=== PATIENT | female | born 1975 | race Caucasian/White ===

== ENCOUNTER 2016-07-14 08:16 | Day surgery (SDC) | payer OTHER ==
--- NOTE | 2016-05-05 12:07 | HP ---
DATE OF ADMISSION: 05/12/2016 Patient to be admitted to the [facility] on May 12, 2016. HISTORY: This is a 40-year-old woman who only recently had developed a every severe bout of lower chest and epigastric discomfort radiating to her back and associated with nausea and vomiting. This led to an evaluation at [facility], which included a CT scan of the abdomen and pelvis as well as an abdominal ultrasound. Ultrasound evaluation completed April 11, 2016, demonstrated a distended gallbladder with a mobile gallstone. Gallbladder wall measured 1 to 2 mm in thickness. There was no appreciable pericholecystic fluid at that time. The biliary ductal structures were of normal caliber. CT evaluation added no additional pertinent information. On close questioning, the patient has had multiple bouts of right upper quadrant mild discomfort in the past. On close questioning, she does have a fatty food intolerance by history and did consume a significantly large fatty meal the night she became very symptomatic. There has been no unintentional weight loss of history of jaundice. The patient's past medical history is significant for hypertension, GERD, and underlying thyroid disorder. No history of hypercholesterolemia; heart disease; diabetes; respiratory, renal or hepatic insufficiency. Past surgical history significant for section in 2011. ALLERGIES: None known. REGULAR MEDICATIONS: Losartan; Synthroid; Lasix 20 mg Mondays, Wednesdays and Fridays. SOCIAL HISTORY: Negative tobacco, negative alcohol. FAMILY HISTORY: Father age 75, history of diabetes, hypercholesterolemia, hypertension. Mother, history of CVA at age 35. Siblings well, one with an underlying thyroid disorder. REVIEW OF SYSTEMS: Nil. PHYSICAL EXAMINATION: Abdomen obese, soft, nontender. No palpable abnormalities. IMPRESSION: Symptomatic cholelithiasis/chronic cholecystitis. PLAN: Laparoscopic cholecystectomy/possible open. Indications, alternatives, possible complications reviewed. Consent obtained. Patient to be seen preoperatively by Dr. Alexis. Please refer to his notes for those medical details. NIA AGUILAR M.D. [id number] cc: Rajat Alexis MD
[2016-07-08 14:00] VITALS: BMI 44.4
--- NOTE | 2016-07-14 12:46 | OP ---
DATE OF OPERATION: 07/14/2016 PREOPERATIVE DIAGNOSIS: Chronic cholecystitis/cholelithiasis. POSTOPERATIVE DIAGNOSIS: Chronic cholecystitis/cholelithiasis. PROCEDURE PERFORMED: Laparoscopic cholecystectomy. OPERATING SURGEON: Dennis Callaway MD SERVICE CORRESPONDENT: David Wild MD ANESTHESIA: General. Dr. Sybil Rodgers HISTORY: A 40-year-old woman who presents to the hospital with chronic cholecystitis/cholelithiasis/biliary colic. The patient for laparoscopic cholecystectomy. Indications, alternatives, possible complications were reviewed and consent was obtained. PROCEDURE IN DETAIL: With the patient in the supine position, after general anesthesia, the abdomen was prepped and draped in a sterile fashion using chlorhexidine. Small infraumbilical transverse incision was made through which a Veress needle was placed into the abdominal cavity. The cavity was inflated to an adequate pressure and volume using CO2 gas. The Veress needle was removed. An 11-mm trocar port was place through the umbilical wound. The cameras lens was passed through this port and the intraabdominal cavity was visualized. Under direct visualization, two 5-mm right anterolateral ports were placed through which clamps were passed to maintain traction on the gallbladder and aid in the dissection. An 11-mm port was placed in the epigastrium in the midline. The operating instruments were passed through this port. Limited exploration of the abdomen, particularly considering the large extent of intraabdominal fat, revealed no significant findings other than adhesions about the gallbladder. These were taken down under direct vision exposing the entire gallbladder and hepatoduodenal ligament. The hepatoduodenal ligament was incised. The cystic duct was identified. The cystic duct bile duct junction was noted. The cystic duct was clipped proximally and distally and divided. The adjacent cystic artery was managed similarly. The gallbladder was then removed from the gallbladder bed using the electrocautery device. Ultimately, the gallbladder was disconnected. The bed was inspected and adequate hemostasis noted. All ports sites were visualize and the ports removed under direct vision noted at the port sites. Ultimately the gallbladder was passed through the umbilical port and delivered without difficulty. The fascia at the level of the umbilicus was closed using interrupted No. 1 Vicryl suture. All skin wounds were closed using subcuticular 4-0 Biosyn sutures. INSTRUMENT COUNTS: Correct. ESTIMATED BLOOD LOSS: Minimal. SPECIMEN: Gallbladder. DRAINS: None. The patient tolerated the procedure and the procedure was terminated. Hubert [id number] MTDD
[2016-07-14] MEDS ORDERED: ONDANSETRON 4 MG/2 ML VIAL IVPUSH PRN ×2 (13:10→13:27)
[2016-07-14] MEDS ORDERED: PROMETHAZINE HCL 25 MG/1 ML VIAL IVPUSH PRN (13:10)
[2016-07-14] MEDS ORDERED: LACTATED RINGERS SOLUTION 1,000 ML IV SCH ×2 (13:15→13:30)
[2016-07-14] MEDS ORDERED: oxyCODONE HCL 5 MG TABLET PO PRN (13:27)
[2016-07-14] MEDS ORDERED: ACETAMINOPHEN INJECTION 100 ML IVPB ONE (13:48)
[2016-07-14] MEDS ORDERED: ACETAMINOPHEN 1000 MG/100 ML VIAL (NON FORMULARY) IVPB ONE ×2 (13:50→14:30)
[2016-07-14] MEDS: FAMOTIDINE 20 MG/50 ML IVPB 50 ML IVPB SCH (21:26)
[2016-07-15] MEDS ORDERED: LEVOTHYROXINE NA 50 MCG TABLET (FP) PO SCH (07:00)
[2016-07-15 09:01] VITALS: BP 114/67; PULSE 86; TEMP 97.3
[2016-07-15] MEDS: FAMOTIDINE 20 MG/50 ML IVPB 50 ML IVPB SCH (09:32)
[2016-07-15] MEDS ORDERED: FUROSEMIDE 20 MG TABLET (FP) PO SCH (10:00)
[2016-07-15] MEDS ORDERED: ENOXAPARIN NA (PORCINE) 40 MG/0.4 ML DISP.SYRIN SQ SCH (10:00)
[2016-07-15] MEDS ORDERED: LOSARTAN 50MG/HCTZ 12.5MG 1 TAB (FP) PO SCH (10:00)
--- NOTE | 2016-07-16 11:34 | PATH ---
Surgical Pathology Report Patient Name: KARISSA JOY [facility]. Rec. #: [id number] /Age/Gender: 1975 (Age: 41) / F Account: [id number] Location: [facility] AMBULATORY Taken: 07/14/2016 Received: 07/14/2016 Reported: 07/16/2016 Physicians: Dennis Callaway M.D. Specimen(s) Received GALLBLADDER Clinical History Calculus of gallbladder with chronic cholecystitis Final Diagnosis GALLBLADDER, CHOLECYSTECTOMY: CHRONIC CHOLECYSTITIS AND CHOLELITHIASIS. Electronically Signed David Padgett M.D. Gross Description Received in formalin, labeled "gallbladder," is a 9.0 x 3.5 x 3.3 cm. gallbladder with a 0.3 cm. in length portion of cystic duct attached. The outer surface is flores jj and varies from smooth to shaggy. The lumen contains green, tenacious bile as well as 2 yellow, irregular choleliths measuring 0.4 and 1.7 cm in greatest dimension. The mucosa is green and velvety. The wall of the gallbladder averages 0.1 cm. in thickness. [employer] sections are submitted in one cassette. 07/15/201607/15/2016
== END 2016-07-15 11:09 | disposition home or self-care (01) ==
LOC: FASU 08:16 → FM/S 15:07 → FASU 07-15 11:09
PROVIDERS: ATTEND Surgery
PROC: 0FT44ZZ Resection of Gallbladder, Percutaneous Endoscopic Approach (ICD-10-PCS; principal; 2016-07-14 11:37)
DX: K80.10 Calculus of gallbladder with chronic cholecystitis without obstruction (principal)
CPT/HCPCS: 84703; 88304-TC; 94760

== ENCOUNTER 2016-08-19 16:10 | Emergency (ER) | payer OTHER ==
[2016-08-19 16:26] VITALS: BMI 43.8
--- NOTE | 2016-08-19 16:26 | PDOC ---
Rapid Medical Evaluation Chief Complaint: Nausea/Vomiting Time Seen by Provider: 08/19/16 16:20 Medical Evaluation: Allergies Allergy/AdvReac Type Severity Reaction Status Date / Time No Known Allergies Allergy Verified 08/19/16 16:20 08/19/16 16:25 I have performed a brief in-person evaluation of this patient. The patient presents with a chief complaint of: epigastric pain x 2 days, intermittent, + nausea/diarrhea, recent cholecystectomy Pertinent physical exam findings:+ epigastric tenderness I have ordered the following: cbc, cmp, lipase, abd/pelvis CT The patient will proceed to the ED for further evaluation.
[2016-08-19 17:28] LABS: BASOPHIL 0.5 % (0-2.0); EOSINOPHIL 1.2 % (0-4.5); MCH 25.6 pg (25.7-33.7); MCHC 33.5 g/dl (32.0-36.0); MEAN CELL VOLUME 76.5 fl (80-96); MEAN PLT VOLUME 8.2 fl (7.5-11.1); NEUTROPHILS 71.6 % (42.8-82.8); PLATELET COUNT 210 K/MM3 (134-434); RDW 14.2 % (11.6-15.6); WHITE BLOOD COUNT 8.7 K/mm3 (4.0-10.0)
[2016-08-19] MEDS ORDERED: SODIUM CHLORIDE 1,000 ML IV STA (17:40)
[2016-08-19] MEDS ORDERED: FAMOTIDINE 20 MG/50 ML IVPB 50 ML IVPB ONE ×2 (17:40→17:48)
--- NOTE | 2016-08-19 17:43 | PDOC ---
History of Present Illness - General History Source: Patient, Old Records Exam Limitations: No Limitations - History of Present Illness Initial Comments: 08/19/16 17:46 41-year-old female with past medical history of hypertension, hypothyroidism, obesity, status post cholecystectomy in early July at [facility] sent in by her primary care physician Dr. Alexis for CT scan of the abdomen pelvis. The patient reports 2 days of intermittent sharp epigastric pain. Associated with some nausea but denies vomiting. Reports several loose stools but denies fevers. Denies sick contacts. Came into the ER to rule out potentially retained stone. <Jagdeep Penaloza - Last Filed: 08/19/16 22:11> - General History Source: Patient Exam Limitations: No Limitations <Pan Chinchilla - Last Filed: 08/19/16 22:29> - General Chief Complaint: Pain, Acute Stated Complaint: SENT BY PCP Time Seen by Provider: 08/19/16 16:20 Past History <Jagdeep Penaloza - Last Filed: 08/19/16 22:11> - Past Medical History Anemia: No Asthma: No Cancer: No Cardiac Disorders: No CVA: No COPD: No CHF: No Dementia: No Diabetes: No GI Disorders: No Disorders: No HTN: Yes (DX 2008) Hypercholesterolemia: Yes (DIET CONTROLLED) Liver Disease: No Seizures: No Thyroid Disease: Yes (HYPOTHYROIDISM) - Surgical History Abdominal Surgery: Yes (- 2011) Appendectomy: No Cardiac Surgery: No Cholecystectomy: No Lung Surgery: No Neurologic Surgery: No Orthopedic Surgery: No - Immunization History Immunization Up to Date: Yes - Psycho/Social/Smoking Cessation Hx Anxiety: No Suicidal Ideation: No Smoking Status: No Smoking History: Never smoked Have you smoked in the past 12 months: No Number of Cigarettes Smoked Daily: 0 Hx Alcohol Use: No Drug/Substance Use Hx: No Substance Use Type: None Hx Substance Use Treatment: No <Pan Chinchilla - Last Filed: 08/19/16 22:29> - Past Medical History Allergies/Adverse Reactions: Allergies Allergy/AdvReac Type Severity Reaction Status Date / Time No Known Allergies Allergy Verified 08/19/16 16:20 Home Medications: Ambulatory Orders Furosemide 20 mg PO DAILY 07/08/16 Levothyroxine [Synthroid -] 50 mcg PO DAILY 07/08/16 Losartan/Hydrochlorothiazide [Losartan-Hctz 100-25 mg Tab] 1 tab PO DAILY Cephalexin [Keflex] 500 mg PO BID #14 capsule 08/19/16 Mag Hydrox/Al Hydrox/Simeth [Mylanta Suspension -] 30 ml PO Q6H PRN #1 bottle Ranitidine HCl [Zantac] 150 mg PO BID PRN #14 tablet 08/19/16 Review of Systems - Review of Systems Able to Perform ROS?: Yes Comments:: 08/19/16 17:46 GENERAL/CONSTITUTIONAL: No fever or chills. No weakness. HEAD, EYES, EARS, NOSE AND THROAT: No change in vision. No ear pain or discharge. No sore throat. CARDIOVASCULAR: No chest pain or shortness of breath. RESPIRATORY: No cough, wheezing, or hemoptysis. GASTROINTESTINAL: (+) epigastric pain, diarrhea, nausea. No vomiting or constipation. GENITOURINARY: No dysuria, frequency, or change in urination. MUSCULOSKELETAL: No joint or muscle swelling or pain. No neck or back pain. SKIN: No rash NEUROLOGIC: No headache, vertigo, loss of consciousness, or change in strength/ sensation. ENDOCRINE: No increased thirst. No abnormal weight change. HEMATOLOGIC/LYMPHATIC: No anemia, easy bleeding, or history of blood clots. ALLERGIC/IMMUNOLOGIC: No hives or skin allergy. <Jagdeep Penaloza - Last Filed: 08/19/16 22:11> *Physical Exam - Vital Signs Last Vital Signs Temp Pulse Resp BP Pulse Ox 97.9 F 115 H 19 137/79 99 08/19/16 16:20 08/19/16 16:20 08/19/16 16:20 08/19/16 16:20 08/19/16 17:42 - Physical Exam Comments: 08/19/16 17:46 GENERAL: (+) Obese. Awake, alert, and fully oriented, in no acute distress HEAD: No signs of trauma EYES: PERRLA, EOMI, sclera anicteric, conjunctiva clear ENT: Auricles normal inspection, hearing grossly normal, nares patent, oropharynx clear without exudates. Moist mucosa NECK: Normal ROM, supple, no lymphadenopathy, JVD, or masses LUNGS: Breath sounds equal, clear to auscultation bilaterally. No wheezes, and no crackles HEART: Regular rate and rhythm, normal S1 and S2, no murmurs, rubs or gallops ABDOMEN: (+) Mild tenderness to the epigastric. Soft, normoactive bowel sounds. No guarding, no rebound. No masses EXTREMITIES: Normal range of motion, no edema. No clubbing or cyanosis. No cords, erythema, or tenderness NEUROLOGICAL: Cranial nerves II through XII grossly intact. Normal speech, normal gait SKIN: Warm, Dry, normal turgor, no rashes or lesions noted. <Jagdeep Penaloza - Last Filed: 08/19/16 22:11> - Vital Signs Last Vital Signs Temp Pulse Resp BP Pulse Ox 97.9 F 115 H 19 137/79 97 08/19/16 16:20 08/19/16 16:20 08/19/16 16:20 08/19/16 16:20 08/19/16 16:20 <Pan Chinchilla - Last Filed: 08/19/16 22:29> Heart Score/ECG Review #1 ECG reviewed & interpreted by me at: 17:40 08/19/16 17:51 NSR 101, no std/seferino, TWI III, normal axis, normal intervals, QTC 453 msec <Pan Chinchilla - Last Filed: 08/19/16 22:29> ED Treatment Course - LABORATORY CBC & Chemistry Diagram: 08/19/16 17:20 08/19/16 17:20 - ADDITIONAL ORDERS Additional order review: 08/19/16 17:20 RBC 5.29 H MCV 76.5 L MCHC 33.5 RDW 14.2 MPV 8.2 Neutrophils % 71.6 Lymphocytes % 19.4 D Monocytes % 7.3 D Eosinophils % 1.2 D Basophils % 0.5 - RADIOLOGY Radiology Studies Ordered: 08/19/16 22:11 EXAM:ABDOMEN PELVIS CT WITH CONTRAST Epigastric pain. CT scan of the abdomen and pelvis following oral and intravenous contrast. Coronal and sagittal reformatted images were obtained 96 cc of Omnipaque 350 was intravenously injected Comparison: Compared to prior CT scan of the abdomen pelvis dated 05/19/2012 Visualized lung base appears unremarkable and the heart is within normal limits in size. The liver is borderline in craniocaudal length mild decreased attenuation suggestive of a fatty liver. The spleen, pancreas and left adrenal gland appear unremarkable. Postcholecystectomy surgical metallic clips are present. There is an approximately 1.1 cm low-attenuation nodule inseparable from the right adrenal gland which is better visualized on this examination, likely representing an adrenal adenoma. Tiny left renal cyst measuring 7 mm and a tiny right renal cyst measuring 7 mm, as well. Both kidneys are otherwise normally enhanced without evidence of hydronephrosis or hydroureter. Previously visualized tiny suspected stone in the distal right ureter is no longer seen. Partially distended urinary bladder without wall thickening. There is no evidence of small bowel obstruction. No enlarged mesenteric or retroperitoneal lymph nodes are identified. No free fluid or free air in the abdomen pelvis. Interval surgical metallic clip along left lateral margin of the uterus 1.4 cm. Slightly lobulated posterior margin of the uterus suggestive of a small fibroid. Low-attenuation density in the right lower pelvis likely representing an ovarian cyst/dominant follicle Visualized osseous structures appear intact Impression: Borderline hepatomegaly with fatty infiltration. Please correlate with liver enzymes. Small right and left renal cyst. There is no evidence of hydroureteronephrosis, bilaterally. Previously visualized likely tiny left renal cyst is not appreciated on this exam. Fibroid uterus Reported By: Abhijeet Wiggins MD <Jagdeep Penaloza - Last Filed: 08/19/16 22:11> - LABORATORY CBC & Chemistry Diagram: 08/19/16 17:20 08/19/16 17:20 - ADDITIONAL ORDERS Additional order review: 08/19/16 17:20 RBC 5.29 H MCV 76.5 L MCHC 33.5 RDW 14.2 MPV 8.2 Neutrophils % 71.6 Lymphocytes % 19.4 D Monocytes % 7.3 D Eosinophils % 1.2 D Basophils % 0.5 <Pan Chinchilla - Last Filed: 08/19/16 22:29> Medical Decision Making - Medical Decision Making 08/19/16 17:41 A portion of this note was documented by scribe services under my direction. I have reviewed the details of the note, within reason, and agree with the documentation with the following case summary and management plan written by me. Patient treated in the ED. Nursing notes are reviewed and incorporated into the medical decision-making. Vital signs reviewed. Peripheral IV access obtained by the nurse, laboratory studies are drawn and sent, reviewed and interpreted by myself. Vital Signs Temp Pulse Resp BP Pulse Ox 97.9 F 115 H 19 137/79 97 08/19/16 16:20 08/19/16 16:20 08/19/16 16:20 08/19/16 16:20 08/19/16 16:20 41-year-old female with past medical history of hypertension, hypothyroidism, obesity, status post cholecystectomy in early July at [facility] sent in by her primary care physician Dr. Alexis for CT scan of the abdomen pelvis. The patient reports 2 days of intermittent sharp epigastric pain. Associated with some nausea but denies vomiting. Reports several loose stools but denies fevers. Denies sick contacts. Came into the ER to rule out potentially retained stone. We'll obtain labs, CAT scan and reassess. 08/19/16 22:27 Borderline hepatomegaly with fatty infiltration. Small right and left renal cyst. There is no evidence of hydrouternephrosis, bilaterally. Previously visualized likely tiny left renal cyst is not appreciated on this exam. Fibroid uterus. CBC, BMP 08/19/16 17:20 08/19/16 17:20 CMP Sodium 140 mmol/L (136-145) 08/19/16 17:20 Potassium 3.0 mmol/L (3.5-5.1) L 08/19/16 17:20 Chloride 99 mmol/L (98-107) 08/19/16 17:20 Carbon Dioxide 29 mmol/L (21-32) 08/19/16 17:20 Anion Gap 12 (8-16) 08/19/16 17:20 BUN 10 mg/dL (7-18) 08/19/16 17:20 Creatinine 0.5 mg/dL (0.55-1.02) L 08/19/16 17:20 Creat Clearance w eGFR > 60 (>60) 08/19/16 17:20 Random Glucose 92 mg/dL (74-106) 08/19/16 17:20 Calcium 9.0 mg/dL (8.5-10.1) 08/19/16 17:20 Total Bilirubin 0.5 mg/dL (0.2-1.0) D 08/19/16 17:20 AST 25 U/L (15-37) D 08/19/16 17:20 ALT 34 U/L (12-78) D 08/19/16 17:20 Alkaline Phosphatase 108 U/L (45-117) 08/19/16 17:20 Total Protein 7.5 g/dl (6.4-8.2) 08/19/16 17:20 Albumin 3.6 g/dl (3.4-5.0) 08/19/16 17:20 Lipase 88 U/L (73-393) 08/19/16 17:20 Serum , Qual Negative 08/19/16 16:55 Urine Test Results Urine Color Yellow 08/19/16 19:20 Urine Appearance Cloudy 08/19/16 19:20 Urine pH 7.0 (5.0-8.0) 08/19/16 19:20 Ur Specific [place] 1.018 (1.001-1.035) 08/19/16 19:20 Urine Protein Negative (NEGATIVE) 08/19/16 19:20 Urine Glucose (UA) Negative (NEGATIVE) 08/19/16 19:20 Urine Ketones Trace (NEGATIVE) H 08/19/16 19:20 Urine Blood 2+ (NEGATIVE) H 08/19/16 19:20 Urine Nitrite Negative (NEGATIVE) 08/19/16 19:20 Urine Bilirubin Negative (NEGATIVE) 08/19/16 19:20 Ur Leukocyte Esterase 1+ (NEGATIVE) H 08/19/16 19:20 Urine RBC 4 /hpf (0-3) 08/19/16 19:20 Urine WBC 18 /hpf (3-5) 08/19/16 19:20 Ur Epithelial Cells Many /hpf (FEW) 08/19/16 19:20 Urine Mucus Few 08/19/16 19:20 Potassium repletion ordered. PO potassium. UA positive for UTI. Keflex ordered. I had given the results to the patient. At this time, there is no acute process and the patient may follow up as an outpatient. Keflex prescription was ordered. GI referral was given. Return precautions given. Patient verbalizes understanding and agrees with plan. Likely gastroenteritis. <Pan Chinchilla - Last Filed: 08/19/16 22:29> *DC/Admit/Observation/Transfer - Attestations Scribe Attestion: 08/19/16 17:46 Documentation prepared by Jagdeep Penaloza, acting as center medical and lab director for Pan Chinchilla MD. <Jagdeep Penaloza - Last Filed: 08/19/16 22:11> - Discharge Dispostion Admit: No <Pan Chinchilla - Last Filed: 08/19/16 22:29> Diagnosis at time of Disposition: Abdominal pain Qualifiers: Abdominal location: upper abdomen, unspecified Qualified Code(s): R10.10 - Upper abdominal pain, unspecified - Discharge Dispostion Disposition: HOME Condition at time of disposition: Improved - Prescriptions Prescriptions: Cephalexin [Keflex] 500 mg PO BID #14 capsule Mag Hydrox/Al Hydrox/Simeth [Mylanta Suspension -] 30 ml PO Q6H PRN #1 bottle PRN Reason: Abdominal Pain Ranitidine HCl [Zantac] 150 mg PO BID PRN #14 tablet PRN Reason: Abdominal Pain - Referrals Referrals: Rajat Alexis MD [Primary Care Provider] - Valentino Camarena MD [Staff Physician] - - Patient Instructions Printed Discharge Instructions: DI for Urinary Tract Infection (UTI), DI for Abdominal Pain-Adult Additional Instructions: Take 500 mg keflex every 12 hours for the next 7 days for UTI. You may take the maalox and/or zantac as prescribed as needed for abdominal pain. Drink plenty of fluids. Please take a copy of your results to your doctor. Call Dr. Alexis and schedule a follow up.
[2016-08-19 17:53] LABS: ALBUMIN 3.6 g/dl (3.4-5.0); ALK PHOS 108 U/L (45-117); ANION GAP 12 (8-16); BILIRUBIN,TOTAL 0.5 mg/dL (0.2-1.0); CO2 29 mmol/L (21-32); CREATININE 0.5 mg/dL (0.55-1.02); GLUCOSE,RANDOM 92 mg/dL (74-106); SGOT/AST 25 U/L (15-37); SGPT/ALT 34 U/L (12-78); TOT PROT 7.5 g/dl (6.4-8.2)
[2016-08-19 18:07] VITALS: BP 140/70; PULSE 100; TEMP 98.1
[2016-08-19] MEDS ORDERED: POTASSIUM CHLORIDE TABS 20 MEQ TABLET.ER (FP) PO ONE ×2 (18:15→18:21)
[2016-08-19 19:47] LABS: URINE APPEARANCE CLOUDY; URINE BILIRUBIN NEGATIVE (NEGATIVE); URINE COLOR YELLOW; URINE GLUCOSE (UA) NEGATIVE (NEGATIVE); URINE KETONE TRACE (NEGATIVE); URINE NITRITE NEGATIVE (NEGATIVE); URINE PROTEIN NEGATIVE (NEGATIVE); URINE UROBILINOGEN NEGATIVE E.U./dl (0.2-1.0)
[2016-08-19 19:54] LABS: URINE BLOOD 2+ (NEGATIVE); URINE LEUK ESTERASE 1+ (NEGATIVE)
[2016-08-19 19:58] LABS: URINE MUCUS FEW; URINE RBC 4 /hpf (0-3); URINE WBC 18 /hpf (3-5)
[2016-08-19] MEDS ORDERED: CEPHALEXIN MONOHYDRATE 500 MG CAPSULE (UD) PO ONE (22:24)
[2016-08-19] MEDS ORDERED: CEPHALEXIN MONOHYDRATE 250 MG CAPSULE (FP) ONE (22:47)
--- NOTE | 2016-08-20 10:00 | EKG ---
Test Reason : Blood Pressure : / mmHG Vent. Rate : 101 BPM Atrial Rate : 101 BPM P-R Int : 168 ms QRS Dur : 096 ms QT Int : 350 ms P-R-T Axes : 018 043 018 degrees QTc Int : 453 ms SINUS TACHYCARDIA INCOMPLETE RBBB WHEN COMPARED WITH ECG OF 31-DEC-2011 11:00, NO SIGNIFICANT CHANGE WAS FOUND Confirmed by MARISOL VALDERRAMA MD ([id number]) on 08/20/2016 9:59:34 AM Referred By: Confirmed By:MARISOL VALDERRAMA MD
== END 2016-08-19 22:53 | disposition home or self-care (01) ==
LOC: JER 16:10
PROC: 3E033GC Introduction of Other Therapeutic Substance into Peripheral Vein, Percutaneous Approach (ICD-10-PCS; principal; 2016-08-19)
DX: K52.9 Noninfective gastroenteritis and colitis, unspecified (principal); N39.0 Urinary tract infection, site not specified; I10 Essential (primary) hypertension; E03.9 Hypothyroidism, unspecified; E66.01 Morbid (severe) obesity due to excess calories; Z68.41 Body mass index [BMI] 40.0-44.9, adult; E87.6 Hypokalemia
CPT/HCPCS: 36415; 74177-TC; 80053; 81003; 81015; 83690; 84703; 85025; 93005; 93010; 99285-25

== ENCOUNTER 2017-02-27 20:41 | Emergency (ER) | payer OTHER ==
[2017-02-27 21:12] VITALS: PULSE 102; TEMP 98; BMI 44.4
--- NOTE | 2017-02-27 21:12 | PDOC ---
Attending Attestation - Resident Resident Name: Ady Chowdhury - ED Attending Attestation I have performed the following: I have examined & evaluated the patient, The case was reviewed & discussed with the resident, I agree w/resident's findings & plan, Exceptions are as noted - HPI HPI: 02/27/17 21:51 41 yo female p/w several weeks of dyspnea. She was treated for bronchitis in January and followed up with her PCP who placed her on a steroid taper that she currently is on. - Physicial Exam PE: 03/01/17 20:25 pleae see the physical exam above - Medical Decision Making 02/27/17 21:52 NOTE Initial vital signs recorded in triage showed hypotension and hypoxia-none of these were found when pt was in the main Ed. Here her pulse ox was 97% on room air and her BP was 142/87 Pt currently on steroid taper and antibiotics. 02/27/17 21:55 obese 41 yo female p/w shortness of breath-feels she cannot get a good breath, "can't catch my breath" HEENT : wnl neck :supple.no jvd lungs ; cta b/l cvr : [id number] abd: protuberant,nontender ext : no edema skin:no lesions,no erythema neuro : axox3,ambulatory,no gross focal neuro deficits 02/27/17 21:59 Dr villalta sent her for nonconstrast CT of CHEST on 02/19/17 that showed faint patchy localized airspce disease left perihilar region,right lower lobe and right upper lobe -NEGATIVE Dupplex dopplers, d dimer in the 200s. -pt comfortable and she is to finish her medications and see her PCP this week 02/28/17 22:11 03/01/17 20:24 pt will follow up with PCP this week
[2017-02-27 21:55] LABS: BASOPHIL 0.3 % (0-2.0); EOSINOPHIL 0.1 % (0-4.5); MCH 25.7 pg (25.7-33.7); MCHC 33.3 g/dl (32.0-36.0); MEAN PLT VOLUME 8.1 fl (7.5-11.1); NEUTROPHILS 85.4 % (42.8-82.8); PLATELET COUNT 256 K/MM3 (134-434); RDW 14.3 % (11.6-15.6); WHITE BLOOD COUNT 14.8 K/mm3 (4.0-10.0)
[2017-02-27] MEDS ORDERED: ALBUTEROL SO4 2.5/IPRATROPIUM 0.5 INH SOL 3 ML VIAL.NEB. NEB ONE (22:00)
--- NOTE | 2017-02-27 22:14 | PDOC ---
History of Present Illness - General Chief Complaint: Respiratory Stated Complaint: S.O.B Time Seen by Provider: 02/27/17 21:09 History Source: Patient Exam Limitations: No Limitations - History of Present Illness Initial Comments: 02/27/17 22:01 The patient is a 41F with a PMH of HTN and hypothyroidism who presents to the ED with complaints of difficulty breathing. The patient states that 3 weeks ago she felt a cold, went to an urgent care and was given a z-pack and prednisone. She spoke with Dr. Alexis who told her to follow up with him if she did not feel better. She wasn't feeling better after this treatment and Dr. Alexis ordered a CT of her chest which showed airspace disease of either inflammatory or infectious etiology. Dr. Alexis prescribed 9 days of prednisone. She then saw Dr. Ojeda for pressure in her urinary bladder and he prescribed phenazopyradine and nitrofurantoin. Today she is complaining of SOB, nausea, and chronic low back pain. LMP: on it now Past History - Past Medical History Allergies/Adverse Reactions: Allergies Allergy/AdvReac Type Severity Reaction Status Date / Time No Known Allergies Allergy Verified 02/27/17 21:12 Home Medications: Ambulatory Orders Furosemide 20 mg PO DAILY 07/08/16 Levothyroxine [Synthroid -] 50 mcg PO DAILY 07/08/16 Losartan/Hydrochlorothiazide [Losartan-Hctz 100-25 mg Tab] 1 tab PO DAILY Cephalexin [Keflex] 500 mg PO BID #14 capsule 08/19/16 Mag Hydrox/Al Hydrox/Simeth [Mylanta Suspension -] 30 ml PO Q6H PRN #1 bottle Ranitidine HCl [Zantac] 150 mg PO BID PRN #14 tablet 08/19/16 Anemia: No Asthma: No Cancer: No Cardiac Disorders: No CVA: No COPD: No CHF: No Dementia: No Diabetes: No GI Disorders: No Disorders: No HTN: Yes (DX 2008) Hypercholesterolemia: Yes (DIET CONTROLLED) Liver Disease: No Seizures: No Thyroid Disease: Yes (HYPOTHYROIDISM) - Surgical History Abdominal Surgery: Yes (- 2011) Appendectomy: No Cardiac Surgery: No Cholecystectomy: No Lung Surgery: No Neurologic Surgery: No Orthopedic Surgery: No - Immunization History Immunization Up to Date: Yes - Psycho/Social/Smoking Cessation Hx Anxiety: No Suicidal Ideation: No Smoking Status: No Smoking History: Never smoked Have you smoked in the past 12 months: No Number of Cigarettes Smoked Daily: 0 Hx Alcohol Use: No Drug/Substance Use Hx: No Substance Use Type: None Hx Substance Use Treatment: No Review of Systems - Review of Systems Able to Perform ROS?: Yes Is the patient limited Indonesian proficient: No Constitutional: No: Chills, Fever Respiratory: Yes: Shortness of Breath Cardiac (ROS): Yes: Chest Pain ABD/GI: Yes: Nausea, Vomiting. No: Constipated, Diarrhea, Other (abd pain) : Yes: Other (pressure). No: Burning, Dysuria, Discharge Neurological: No: Headache, Numbness, Tingling, Weakness *Physical Exam - Vital Signs Last Vital Signs Temp Pulse Resp BP Pulse Ox 98 F 102 H 20 142/87 97 02/27/17 21:08 02/27/17 21:08 02/27/17 21:08 02/27/17 21:42 02/27/17 21:42 - Physical Exam General Appearance: Yes: Nourished, Appropriately Dressed, Obese HEENT: positive: Normal Voice, Hearing Grossly Normal Respiratory/Chest: positive: Lungs Clear, Normal Breath Sounds. negative: Chest Tender, Respiratory Distress, Crackles, Rales, Rhonchi, Stridor, Wheezing Cardiovascular: positive: Regular Rhythm, Regular Rate, S1, S2. negative: Diastolic Murmur, Systolic Murmur Gastrointestinal/Abdominal: positive: Flat, Soft. negative: Tender, Distended, Guarding, Rebound, Tenderness Musculoskeletal: negative: CVA Tenderness, CVA Tenderness (R), CVA Tenderness (L ) Integumentary: positive: Dry, Warm. negative: Cold, Clammy, Swelling Neurologic: positive: Fully Oriented, Alert, Normal Mood/Affect, Normal Response , Motor Strength /5 ED Treatment Course - LABORATORY CBC & Chemistry Diagram: 02/27/17 21:45 02/27/17 22:40 - ADDITIONAL ORDERS Additional order review: 02/27/17 21:45 RBC 5.69 H MCV 77.0 L MCHC 33.3 RDW 14.3 MPV 8.1 Neutrophils % 85.4 H Lymphocytes % 8.9 D Monocytes % 5.3 Eosinophils % 0.1 D Basophils % 0.3 Medical Decision Making - Medical Decision Making 02/27/17 22:18 The patient is a 41F who is presenting with difficulty breathing and suprapubic pressure. I have ordered labs and duoneb treatment and will reassess when they return. 02/27/17 23:54 Patient signed out to Dr. Castellanos.
[2017-02-27 22:33] VITALS: BP 142/87
[2017-02-27] MEDS ORDERED: ONDANSETRON 4 MG/2 ML VIAL ONE (22:34)
[2017-02-27] MEDS ORDERED: ONDANSETRON 4 MG/2 ML VIAL IVPUSH ONE (22:34)
[2017-02-27 23:08] LABS: ALBUMIN 4.1 g/dl (3.4-5.0); ANION GAP 10 (8-16); BILIRUBIN,TOTAL 0.4 mg/dL (0.2-1.0); CALCIUM 9.5 mg/dL (8.5-10.1); CO2 27 mmol/L (21-32); CREATININE 0.8 mg/dL (0.55-1.02); GLUCOSE,RANDOM 130 mg/dL (74-106); SGOT/AST 47 U/L (15-37); SGPT/ALT 82 U/L (12-78); TOT PROT 8.4 g/dl (6.4-8.2)
[2017-02-27 23:09] LABS: ALK PHOS 114 U/L (45-117)
[2017-02-27] MEDS ORDERED: POTASSIUM CHLORIDE TABS 20 MEQ TABLET.ER (FP) PO ONE ×2 (23:15→23:25)
[2017-02-27] MEDS ORDERED: SODIUM CHLORIDE 1,000 ML IV STA (23:50)
[2017-02-28 00:47] LABS: URINE APPEARANCE SLCLOUDY; URINE BILIRUBIN NEGATIVE (NEGATIVE); URINE BLOOD NEGATIVE (NEGATIVE); URINE COLOR YELLOW; URINE GLUCOSE (UA) NEGATIVE (NEGATIVE); URINE KETONE NEGATIVE (NEGATIVE); URINE LEUK ESTERASE NEGATIVE (NEGATIVE); URINE NITRITE NEGATIVE (NEGATIVE); URINE UROBILINOGEN NEGATIVE mg/dL (0.2-1.0)
[2017-02-28] MEDS ORDERED: ALBUTEROL SO4 2.5/IPRATROPIUM 0.5 INH SOL 3 ML VIAL.NEB. NEB ONE (00:48)
[2017-02-28 00:49] LABS: URINE PROTEIN 1+ (NEGATIVE)
[2017-02-28 00:50] LABS: URINE HYALINE CAST 9 /lpf; URINE MUCUS MANY; URINE RBC 2 /hpf (0-3); URINE WBC 15 /hpf (3-5)
--- NOTE | 2017-02-28 02:08 | PDOC ---
*Physical Exam - Vital Signs Last Vital Signs Temp Pulse Resp BP Pulse Ox 98 F 102 H 20 142/87 98 02/27/17 21:08 02/27/17 21:08 02/27/17 21:08 02/27/17 21:42 02/27/17 21:45 ED Treatment Course - LABORATORY CBC & Chemistry Diagram: 02/27/17 21:45 02/27/17 22:40 - ADDITIONAL ORDERS Additional order review: Laboratory Results 02/28/17 02/27/17 02/27/17 00:30 22:40 22:40 D-Dimer Sodium 136 Potassium 3.1 L Chloride 99 Carbon Dioxide 27 Anion Gap 10 BUN 19 H D Creatinine 0.8 D Creat Clearance w eGFR > 60 Random Glucose 130 H D Calcium 9.5 Total Bilirubin 0.4 AST 47 H D ALT 82 H D Alkaline Phosphatase 114 Total Protein 8.4 H Albumin 4.1 Serum , Qual Negative Urine Color Yellow Urine Appearance Slcloudy Urine pH 5.0 D Urine Protein 1+ H Urine Glucose (UA) Negative Urine Ketones Negative Urine Blood Negative Urine Nitrite Negative Urine Bilirubin Negative Urine Urobilinogen Negative Urine RBC 2 Urine WBC 15 Ur Epithelial Cells Many Hyaline Casts 9 Urine Mucus Many 02/27/17 02/27/17 21:45 21:45 D-Dimer 294 H Sodium Cancelled Potassium Cancelled Chloride Cancelled Carbon Dioxide Cancelled Anion Gap Cancelled BUN Cancelled Creatinine Cancelled Creat Clearance w eGFR Cancelled Random Glucose Cancelled Calcium Cancelled Total Bilirubin Cancelled AST Cancelled ALT Cancelled Alkaline Phosphatase Cancelled Total Protein Cancelled Albumin Cancelled Serum , Qual Urine Color Urine Appearance Urine pH Urine Protein Urine Glucose (UA) Urine Ketones Urine Blood Urine Nitrite Urine Bilirubin Urine Urobilinogen Urine RBC Urine WBC Ur Epithelial Cells Hyaline Casts Urine Mucus 02/27/17 21:45 RBC 5.69 H MCV 77.0 L MCHC 33.3 RDW 14.3 MPV 8.1 Neutrophils % 85.4 H Lymphocytes % 8.9 D Monocytes % 5.3 Eosinophils % 0.1 D Basophils % 0.3 - RADIOLOGY Radiology Studies Ordered: Category Date Time Status DUPLEX VASCUL US-2LEGS [US] Stat Ultrasound 02/28/17 00:47 Taken - Medications Given in the ED: ED Medications Discontinued Medications Generic Name Dose Route Start Last Admin Trade Name Freq PRN Reason Stop Dose Admin Albuterol/Ipratropium 1 amp 02/27/17 22:00 02/27/17 22:07 Duoneb - NEB 02/27/17 22:01 1 amp ONCE ONE Administration Albuterol/Ipratropium 1 amp 02/28/17 00:48 02/28/17 00:55 Duoneb - NEB 02/28/17 00:49 1 amp ONCE ONE Administration Sodium Chloride 1,000 mls @ 1,000 mls/hr 02/27/17 23:50 02/28/17 00:06 Normal Saline - IV 02/28/17 00:49 1,000 mls/hr ASDIR STA Administration Ondansetron HCl 4 mg 02/27/17 22:34 02/27/17 22:36 Zofran Injection IVPUSH 02/27/17 22:35 4 mg ONCE ONE Administration Potassium Chloride 40 meq 02/27/17 23:15 02/27/17 23:28 K-Dur - PO 02/27/17 23:16 40 meq ONCE ONE Administration *DC/Admit/Observation/Transfer Diagnosis at time of Disposition: Cough in adult Dyspnea Qualifiers: Dyspnea type: shortness of breath Qualified Code(s): R06.02 - Shortness of breath; R06.00 - Dyspnea, unspecified; R06.01 - Orthopnea - Discharge Dispostion Disposition: HOME Condition at time of disposition: Stable - Patient Instructions Printed Discharge Instructions: DI for Acute Bronchitis, DI for Shortness of Breath Additional Instructions: please follow up with your doctor this week continue to take your steroids and breathing treatments
[2017-02-28] MEDS ORDERED: ONDANSETRON 4 MG/2 ML VIAL ONE (02:17)
[2017-02-28] MEDS ORDERED: ONDANSETRON 4 MG/2 ML VIAL IVPUSH ONE (02:22)
--- NOTE | 2017-02-28 13:55 | EKG ---
Test Reason : Blood Pressure : / mmHG Vent. Rate : 100 BPM Atrial Rate : 100 BPM P-R Int : 166 ms QRS Dur : 096 ms QT Int : 376 ms P-R-T Axes : 040 051 025 degrees QTc Int : 485 ms NORMAL SINUS RHYTHM WHEN COMPARED WITH ECG OF 19-AUG-2016 17:40, NO SIGNIFICANT CHANGE WAS FOUND Confirmed by ALLEGRA RICHTER MD ([id number]) on 02/28/2017 1:55:17 PM Referred By: Confirmed By:ALLEGRA RICHTER MD
== END 2017-02-28 02:23 | disposition home or self-care (01) ==
LOC: JER 20:41
PROC: 3E0337Z Introduction of Electrolytic and Water Balance Substance into Peripheral Vein, Percutaneous Approach (ICD-10-PCS; principal; 2017-02-27)
PROC: 3E033GC Introduction of Other Therapeutic Substance into Peripheral Vein, Percutaneous Approach (ICD-10-PCS; 2017-02-27)
PROC: 3E0F7GC Introduction of Other Therapeutic Substance into Respiratory Tract, Via Natural or Artificial Opening (ICD-10-PCS; 2017-02-27)
PROC: 3E0F7GC Introduction of Other Therapeutic Substance into Respiratory Tract, Via Natural or Artificial Opening (ICD-10-PCS; 2017-02-27)
PROC: 3E0F7GC Introduction of Other Therapeutic Substance into Respiratory Tract, Via Natural or Artificial Opening (ICD-10-PCS; 2017-02-27)
DX: R06.00 Dyspnea, unspecified (principal); I10 Essential (primary) hypertension; E78.00 Pure hypercholesterolemia, unspecified; E03.9 Hypothyroidism, unspecified
CPT/HCPCS: 36415; 80053; 81003; 81015; 84703; 85025; 85379; 87086; 93005; 93010; 93970-TC; 99283-25